=== PATIENT | male | born 1965 | race Two or more races ===

== ENCOUNTER 2020-05-04 03:11 | Inpatient (IN) | payer OTHER ==
[~2020-05-04] VITALS: Ht 185.4 cm; Wt 93.4 kg
== END 2020-05-07 11:36 | disposition home or self-care (01) | DRG 390 ==
LOC: ER 03:11 → MEDI 13:30 → SEC-K 13:30 → MEDI 05-05 00:17 → SURH 05-05 16:10
PROVIDERS: ADMIT Surgery; ATTEND Surgery
PROC: 0DH67UZ Insertion of Feeding Device into Stomach, Via Natural or Artificial Opening (ICD-10-PCS; principal; 2020-05-04)
PROC: 3E0G76Z Introduction of Nutritional Substance into Upper GI, Via Natural or Artificial Opening (ICD-10-PCS; 2020-05-04)
PROC: 0DJD8ZZ Inspection of Lower Intestinal Tract, Via Natural or Artificial Opening Endoscopic (ICD-10-PCS; 2020-05-06)
DX: K56.690 Other partial intestinal obstruction (principal); F17.200 Nicotine dependence, unspecified, uncomplicated; Z93.3 Colostomy status